=== PATIENT | female | born 1985 | race Caucasian/White ===

== ENCOUNTER → 2018-04-11 | Outpatient (REF) | payer OTHER | LOC: M LAB REF 13:14 | DX: Z34.82 Encounter for supervision of other normal pregnancy, second trimester (principal) ==

== ENCOUNTER → 2018-04-15 | Outpatient (REF) | payer OTHER | LOC: M LAB REF 17:18 | DX: Z34.82 Encounter for supervision of other normal pregnancy, second trimester (principal) ==

== ENCOUNTER 2018-04-24 19:33 | Outpatient (CLI) | payer OTHER ==
[2018-04-24 20:20] LABS: BASO % 0.2 % (0.0-1.0); EOS # 0.4 10^3/uL (0.0-0.50); EOS % 2.9 % (0.0-3.0); HEMATOCRIT 28.1 % (36.0-47.0); HEMOGLOBIN 9.6 g/dl (12.0-15.5); IMMATURE GRANULOCYTE % 0.6 % (0-3.0); LYMPH # 2.1 10^3/uL (1.5-4.5); LYMPH % 17.2 % (24.0-44.0); MEAN CORPUSCULAR HEMOGLOBIN 29.7 pg (27.0-33.0); MEAN CORPUSCULAR HGB CONC 34.2 g/dl (32.0-36.5); MONO # 0.9 10^3/uL (0.0-0.8); MONO % 7.5 % (0.0-5.0); NEUTROPHILS # 8.7 10^3/uL (1.8-7.7); NEUTROPHILS % 71.6 % (36.0-66.0); PLATELET COUNT, AUTOMATED 205 10^3/uL (150-450); RED BLOOD COUNT 3.23 10^6/uL (4.00-5.40); RED CELL DISTRIBUTION WIDTH 13.2 % (11.5-14.5); WHITE BLOOD COUNT 12.2 10^3/uL (4.0-10.0)
[2018-04-24 21:00] LABS: ALBUMIN 2.5 GM/DL (3.2-5.2); ALBUMIN/GLOBULIN RATIO 0.69 (1.00-1.93); ALKALINE PHOSPHATASE 56 U/L (45-117); ALT/SGPT 29 U/L (12-78); AMYLASE 40 U/L (25-115); ANION GAP 9 MEQ/L (8-16); AST/SGOT 19 U/L (7-37); BILIRUBIN,TOTAL 0.2 MG/DL (0.2-1.0); CALCIUM LEVEL 8.2 MG/DL (8.5-10.1); CARBON DIOXIDE LEVEL 23 MEQ/L (21-32); CHLORIDE LEVEL 109 MEQ/L (98-107); GLOMERULAR FILTRATION RATE > 60.0 (>60); GLUCOSE, FASTING 95 MG/DL (70-100); LIPASE 118 U/L (73-393); POTASSIUM SERUM 3.8 MEQ/L (3.5-5.1); SODIUM LEVEL 141 MEQ/L (136-145); TOTAL PROTEIN 6.1 GM/DL (6.4-8.2)
[2018-04-24 21:01] LABS: BLOOD UREA NITROGEN 12 MG/DL (7-18)
== END 2018-04-24 23:30 | disposition home or self-care (01) ==
LOC: M LDO 19:33
DX: O26.892 Other specified pregnancy related conditions, second trimester (principal); R10.12 Left upper quadrant pain; O99.019 Anemia complicating pregnancy, unspecified trimester; Z3A.22 22 weeks gestation of pregnancy
CPT/HCPCS: 76705

== ENCOUNTER 2018-04-24 23:38 | Emergency (ER) | payer OTHER ==
[2018-04-25 00:13] LABS: KETONE, URINE AUTO RFX NEGATIVE (NEGATIVE); LEUKOCYTE ESTERASE UR AUTO RFX NEGATIVE (NEGATIVE); MUCUS, URINE RFX SMALL (NEGATIVE); NITRITE, URINE AUTO RFX NEGATIVE (NEGATIVE); RBC, URINE AUTO RFX 2 /HPF (0-3); SQUAM EPITHELIAL CELL UR AURFX 1 /HPF (0-6); WBC, URINE AUTO RFX 0 /HPF (0-3)
[2018-04-25 00:57] LABS: AMPHETAMINES LEVEL URINE NEGATIVE (NEGATIVE); BARBITURATES URINE NEGATIVE (NEGATIVE); BENZODIAZEPINES URINE NEGATIVE (NEGATIVE); CANNABINOIDS URINE NEGATIVE (NEGATIVE); COCAINE METABOLITE URINE NEGATIVE (NEGATIVE); METHADONE URINE NEGATIVE (NEGATIVE); OPIATES URINE NEGATIVE (NEGATIVE); PHENCYCLIDINE URINE NEGATIVE (NEGATIVE)
[2018-04-25] MEDS: DICYCLOMINE INJ 20MG/2ML (J0500) IM ×2 (01:13→01:15)
== END 2018-04-25 01:19 | disposition home or self-care (01) ==
LOC: M ED 23:38
DX: O26.892 Other specified pregnancy related conditions, second trimester (principal); R10.9 Unspecified abdominal pain; Z3A.22 22 weeks gestation of pregnancy; O99.322 Drug use complicating pregnancy, second trimester; F11.11 Opioid abuse, in remission
CPT/HCPCS: 81001

== ENCOUNTER → 2018-06-04 | Outpatient (CLI) | payer OTHER ==
[2018-06-04 11:41] LABS: HEMATOCRIT 32.6 % (36.0-47.0); HEMOGLOBIN 10.9 g/dl (12.0-15.5); MEAN CORPUSCULAR HEMOGLOBIN 30.3 pg (27.0-33.0); MEAN CORPUSCULAR HGB CONC 33.4 g/dl (32.0-36.5); MEAN CORPUSCULAR VOLUME 90.6 fl (80.0-96.0); PLATELET COUNT, AUTOMATED 234 10^3/uL (150-450); RED CELL DISTRIBUTION WIDTH 13.4 % (11.5-14.5); WHITE BLOOD COUNT 17.5 10^3/uL (4.0-10.0)
[2018-06-04 11:52] LABS: GLUCOSE CHALLENGE TEST 1 HOUR 168 MG/DL (LESS THAN 140)
== END ==
LOC: M LAB 10:01
DX: O09.212 Supervision of pregnancy with history of pre-term labor, second trimester (principal)
CPT/HCPCS: 82950

== ENCOUNTER → 2018-06-19 | Outpatient (CLI) | payer OTHER ==
[2018-06-19 09:57] LABS: GLUCOSE, FASTING 89 MG/DL (LESS THAN 95)
[2018-06-19 11:00] LABS: 1 HR GLUCOSE 153 MG/DL (LESS THAN 180)
[2018-06-19 12:28] LABS: 2 HR GLUCOSE 157 MG/DL (LESS THAN 155)
[2018-06-19 12:49] LABS: 3 HR GLUCOSE 105 MG/DL (LESS THAN 140)
== END ==
LOC: M LAB 08:59
DX: Z36.89 Encounter for other specified antenatal screening (principal); R73.02 Impaired glucose tolerance (oral)
CPT/HCPCS: 82951

== ENCOUNTER → 2018-07-24 | Outpatient (REF) | payer OTHER ==
[~2018-07-24] MED LIST: BENT10CA PO; FERR325T16 PO; PRENTAB45 PO; STOO100C PO; TYLE325C PO
== END ==
LOC: M LAB REF 17:10
PROVIDERS: ATTEND Obstetrics & Gynecology
DX: Z36.89 Encounter for other specified antenatal screening (principal)

== ENCOUNTER 2018-08-14 00:20 | Inpatient (IN) | payer OTHER ==
[~2018-08-14] VITALS: Ht 177.8 cm; Wt 92.1 kg
[2018-08-14] VITALS (9 sets, daily range): BP systolic 93–106; BP diastolic 51–70
[2018-08-14] MEDS ORDERED: IRON27TA2 PO (01:04)
[2018-08-14] MEDS ORDERED: LR 800 ML IV ONE (02:15)
[2018-08-14] MEDS ORDERED: LR 1,000 ML IV SCH ×2 (02:15→05:15)
[2018-08-14 02:48] LABS: HEMATOCRIT 34.4 % (36.0-47.0); HEMOGLOBIN 11.6 g/dl (12.0-15.5); MEAN CORPUSCULAR HEMOGLOBIN 30.9 pg (27.0-33.0); MEAN CORPUSCULAR HGB CONC 33.7 g/dl (32.0-36.5); MEAN CORPUSCULAR VOLUME 91.7 fl (80.0-96.0); PLATELET COUNT, AUTOMATED 203 10^3/uL (150-450); RED BLOOD COUNT 3.75 10^6/uL (4.00-5.40); WHITE BLOOD COUNT 17.3 10^3/uL (4.0-10.0)
[2018-08-14] MEDS ORDERED: BICITRA 30ML SOLN UDC As Ordered ONE (03:12)
[2018-08-14] MEDS ORDERED: ONDANSETRON 4MG/2ML VIAL (J2405) As Ordered ONE (03:27)
[2018-08-14] MEDS ORDERED: dexameTHASONE 4 MG/ML 1ML VIAL (J1100) As Ordered ONE (03:27)
[2018-08-14] MEDS ORDERED: OXYTOCIN INJ 10 UNITS/ML VIAL (J2590) As Ordered ONE (03:27)
[2018-08-14] MEDS ORDERED: MORPHINE PRES-FREE INJ 10 MG/10 ML VIAL (J2274) As Ordered ONE (03:28)
[2018-08-14] MEDS ORDERED: fentaNYL 100 MCG/2 ML INJECTION (J3010) As Ordered ONE (03:28)
[2018-08-14] MEDS ORDERED: ONDANSETRON 4MG/2ML VIAL (J2405) IV PRN ×3 (03:44→05:15)
[2018-08-14] MEDS ORDERED: NALOXONE INJ 0.4 MG/1 ML VIAL (J2310) IV PRN ×2 (03:44)
[2018-08-14] MEDS ORDERED: METOCLOPRAMIDE INJ 10MG/2ML VIAL (J2765) IV PRN (03:44)
[2018-08-14] MEDS ORDERED: diphenhydrAMINE INJ 50MG/ML VIAL (J1200) IV PRN (03:44)
[2018-08-14] MEDS ORDERED: NALBUPHINE HCL 10 MG/ML AMP (J2300) IV PRN ×2 (03:44→05:15)
[2018-08-14] MEDS ORDERED: ePHEDrine SULFATE 25 MG/5 ML(5MG/ML) SYRINGE As Ordered ONE (04:16)
[2018-08-14] MEDS ORDERED: PHENYLephrine HCL 500 MCG/5 ML (100MCG/ML) SYRINGE (J2370) As Ordered ONE (04:16)
[2018-08-14] MEDS ORDERED: OXYTOCIN DRIP 30 UNITS in APPROPRIATE DILUENT 1 EA IV SCH (04:49)
[2018-08-14] MEDS ORDERED: MEASLES,MUMPS,RUBELLA VACCINE INJ (MMR-II) (90707) SC SCH (05:00)
[2018-08-14] MEDS ORDERED: METHYLERGONOVINE MALEATE 0.2 MG TAB PO PRN (05:00)
[2018-08-14] MEDS ORDERED: MOM 30ML SUSPENSION UDC PO PRN (05:00)
[2018-08-14] MEDS ORDERED: NORCO, ANEXSIA 5/325MG TABLET (HYDROcodone/ACETAMINOPHEN) PO PRN (05:00)
[2018-08-14] MEDS ORDERED: RHOGAM 300 MCG (1500 IU) INJ (J2790) IM SCH (05:00)
[2018-08-14] MEDS ORDERED: OXYTOCIN 30 UNITS IN 0.9% NaCl 500ML IV BAG (J2590) As Ordered ONE (05:13)
[2018-08-14] MEDS ORDERED: fentaNYL 100 MCG/2 ML INJECTION (J3010) IV PRN (05:15)
[2018-08-14] MEDS ORDERED: PROMETHAZINE INJ 25 MG/ML VIAL (J2550) IV PRN (05:15)
[2018-08-14 05:22] LABS: CORD GAS ABE V -3.5; CORD GAS HCO3 V 23.3 MEQ/L; CORD GAS O2 SAT V 57.7 %; CORD GAS PCO2 V 48.3 mmHg; CORD GAS PH V 7.302 UNITS; CORD GAS PO2 V 23.2 mmHg; CORD GAS SBC V 20.5 MEQ/L; CORD GAS TCO2 V 24.8 MEQ/L
[2018-08-14 05:23] LABS: CORD GAS ABE A -2.5; CORD GAS HCO3 A 25.9 MEQ/L; CORD GAS O2 SAT A 27.9 %; CORD GAS PCO2 A 58.6 mmHg; CORD GAS PH A 7.263 UNITS; CORD GAS PO2 A 12.7 mmHg; CORD GAS SBC A 20.6 MEQ/L; CORD GAS TCO2 A 27.7 MEQ/L
[2018-08-14] MEDS ORDERED: IBUPROFEN 800 MG TAB PO SCH (06:00)
[2018-08-14] MEDS ORDERED: BICITRA 30ML SOLN UDC PO SCH (06:00)
[2018-08-14] MEDS: NORCO, ANEXSIA 5/325MG TABLET (HYDROcodone/ACETAMINOPHEN) PO PRN ×2 (07:54→22:31)
--- NOTE | 2018-08-14 08:14 | HPE ---
DATE OF ADMISSION: 08/14/2018 Sol is a 32-year-old female 4, para 1, 03, with an EDC of 08/27/2018, EGA 38-2/7 weeks gestation, history of prior section who presented to labor and delivery with complaints of contractions and rupture of membranes. Upon evaluation in labor and delivery she was found to be grossly ruptured at this point a decision was made to proceed with a repeat section as she was scheduled for a section at 39 weeks. The patient also desires permanent tubal sterilization. Her record reviewed. The patient had a prior section in 2008 at approximately 26 weeks gestation, fetus weighed 2 pounds 7 ounces. Her lab blood type is A+, rubella immune, hepatitis negative, HIV negative, GC and chlamydia negative, 1-hour sugar testing was within normal limits. Her GBS is positive. PAST MEDICAL HISTORY: Significant for anxiety. PAST SURGICAL HISTORY: section and neck surgery. SOCIAL HISTORY: She is . She is a smoker. Denies any alcohol or drug use although she is she is a former drug abuser, was on Suboxone. FAMILY HISTORY: Significant for lung cancer, diabetes and irritable bowel syndrome. MEDICATIONS: vitamins. The patient was also on Venus which was stopped at 36 weeks. ALLERGIES: She has no known drug allergy. PHYSICAL EXAMINATION: Normal-appearing female in no acute distress. Abdomen: Soft, nontender, nondistended. Extremities: No clubbing, cyanosis or edema. Vaginal exam: Gross rupture of membranes. Tracing reviewed - category I tracing with contractions every 5-7 minutes. ASSESSMENT: 1. Intrauterine at 38-4/7 weeks gestation with spontaneous rupture of membranes. 2. History of prior section for elective repeat section. 3. Multiparity, desires permanent tubal sterilization. PLAN: Admit to labor and delivery. Informed consent signed. Awaiting operating room (OR) for a repeat section and bilateral tubal ligation.
[2018-08-14] MEDS: DOCUSATE SODIUM 100 MG CAP PO SCH ×2 (09:00→20:56)
[2018-08-14] MEDS: PRENATAL VITAMINS CHEWABLE TABLET PO SCH (09:00)
--- NOTE | 2018-08-14 12:44 | RO ---
DATE OF PROCEDURE: 08/14/2018 Sol is a 32-year-old female, 4, para 0-1-3-1, who is admitted at 38-4/7 weeks gestation with spontaneous rupture of membrane. Given that she is a repeat section, she was scheduled for repeat and tubal ligation. A decision was made to proceed with a repeat section and tubal ligation. PREOPERATIVE DIAGNOSES: 1. Term for elective repeat section. 2. Spontaneous rupture of membranes. 3. Desires permanent tubal sterilization. POSTOPERATIVE DIAGNOSES: 1. Term for elective repeat section. 2. Spontaneous rupture of membranes. 3. Desires permanent tubal sterilization. 4. Extensive pelvic and lower uterine adhesions. PROCEDURE: 1. Repeat section. 2. Revision of old scar. 3. Bilateral tubal ligation using Filshie clip 4. Lysis of adhesions. SURGEON: Dr. Chad Handy TOLL TEST DESK WORKER: ANESTHESIA: Spinal. COMPLICATIONS: None. ESTIMATED BLOOD LOSS: 600 mL. FINDINGS: Live female infant in occiput transverse position, 9 and 9, weight 6 pounds 6 ounces. The omentum was adherent to the anterior abdominal wall as well as the lower uterine segment and bladder. Bladder adhesions also noted at the level of the prior section scar. DESCRIPTION OF PROCEDURE: After obtaining informed consent, the patient was taken to the operating room where A spinal anesthetic was found to be adequate. She was then draped and prepped in usual sterile fashion in the supine position. At this point, an elliptical incision was made over the old scar. The old scar was removed and then carried down to the fascia. The fascia was incised in midline fashion and carried through laterally, superior and inferior dissection. The peritoneum was then grasped with Rosi clamps, tented off and dissected off the rectus muscles sharply. The inferior aspect was dissected in similar fashion. Rectus muscles midline fashion. Perineum identified. Peritoneal cavity entered bluntly. Superior and inferior dissection of the peritoneum was then done with good visualization of the bladder. At this point, the omental adhesions were then removed with the Bovie and clamping method. Good hemostasis noted. We then turned our attention to the lower uterine adhesions as well as the bladder. Using the Metzenbaum, these adhesions were taken down. At this point, we were able to create a lower uterine segment incision. The infant was delivered in atraumatic fashion. Nose and mouth bulb suctioned. Cord doubly clamped and cut. Infant was handed over to the waiting warmer. Cord blood and cord gas were sent. Placenta removed manually. Uterus cleared of all clot and debris. The uterine incision was then repaired in two separate layers of #0 Vicryl sutures. At this point, the attention turned to the fallopian tubes where the fimbriated ends were identified and a Filshie clip was then applied approximately 3-4 cm away from the cornual area of each tube. The pelvis copiously irrigated with normal saline and suctioned out. We then turned our attention to the peritoneum which was closed using #2-0 Vicryl in a running fashion. The fascia closed in two separate segments of #0 Vicryl sutures. All superficial bleeders coagulated and the skin was reapproximated in subcuticular fashion using #3-0 Vicryl on a Aung. Steri-Strips placed. The patient tolerated the procedure well. She was then transferred to recovery room in stable condition.
[2018-08-14] MEDS: IBUPROFEN 800 MG TAB PO SCH ×2 (13:50→20:56)
[2018-08-15 02:47] VITALS: BP 84/45
[2018-08-15 02:56] VITALS: BP 90/50
[2018-08-15] MEDS: IBUPROFEN 800 MG TAB PO SCH ×3 (04:56→21:36)
[2018-08-15 06:40] VITALS: BP 92/53
[2018-08-15] MEDS: NORCO, ANEXSIA 5/325MG TABLET (HYDROcodone/ACETAMINOPHEN) PO PRN ×3 (06:50→18:14)
[2018-08-15 07:02] LABS: HEMATOCRIT 31.3 % (36.0-47.0); HEMOGLOBIN 10.5 g/dl (12.0-15.5); MEAN CORPUSCULAR HEMOGLOBIN 30.3 pg (27.0-33.0); MEAN CORPUSCULAR HGB CONC 33.5 g/dl (32.0-36.5); MEAN CORPUSCULAR VOLUME 90.5 fl (80.0-96.0); PLATELET COUNT, AUTOMATED 184 10^3/uL (150-450); RED BLOOD COUNT 3.46 10^6/uL (4.00-5.40); WHITE BLOOD COUNT 15.6 10^3/uL (4.0-10.0)
[2018-08-15] MEDS: PRENATAL VITAMINS CHEWABLE TABLET PO SCH (08:52)
[2018-08-15] MEDS: DOCUSATE SODIUM 100 MG CAP PO SCH ×2 (08:52→21:38)
[2018-08-15 10:04] VITALS: BP 92/54
[2018-08-15] MEDS: SIMETHICONE 80 MG CHEW TAB PO SCH ×2 (16:43→23:56)
[2018-08-15 18:10] VITALS: BP 120/69
[2018-08-15 22:28] VITALS: BP 111/57
[2018-08-16] MEDS: NORCO, ANEXSIA 5/325MG TABLET (HYDROcodone/ACETAMINOPHEN) PO PRN ×3 (00:02→08:43)
[2018-08-16] MEDS: IBUPROFEN 800 MG TAB PO SCH (06:08)
[2018-08-16] MEDS: SIMETHICONE 80 MG CHEW TAB PO SCH ×2 (06:08→11:59)
[2018-08-16 06:50] VITALS: BP 125/60
[2018-08-16] MEDS: PRENATAL VITAMINS CHEWABLE TABLET PO SCH (08:38)
[2018-08-16] MEDS: DOCUSATE SODIUM 100 MG CAP PO SCH (08:39)
[2018-08-16] MEDS ORDERED: COLA100C5 PO (08:54)
[2018-08-16] MEDS ORDERED: IBUP-1114 PO (08:54)
[2018-08-16] MEDS ORDERED: NORC1TAB4 PO (08:54)
--- NOTE | 2018-08-21 09:31 | DSES ---
DATE OF ADMISSION: 08/14/2018 DATE OF DISCHARGE: 08/16/2018 FINAL DIAGNOSES: 1. Term for elective repeat section. 2. Spontaneous rupture of membrane. 3. Desires permanent tubal sterilization. 4. Extensive pelvic and lower uterine adhesions. PROCEDURES DONE DURING THIS ADMISSION: 1. Repeat section. 2. Revision of old scar. 3. Bilateral tubal ligation using Filshie clip. 4. Lysis of adhesions. CONDITION ON DISCHARGE: Stable. DISCHARGE INSTRUCTIONS: The patient is instructed to call if there is any severe bleeding, pain or temperature greater than 101. She was given a prescription for Percocet as needed for pain and ibuprofen as needed. BRIEF HISTORY: Sol is 32-year-old female, 4, para 0-1-3-1, who was admitted at 38-4/7 weeks gestation with spontaneous rupture of membranes. At this point, a decision was made to proceed with the repeat section, bilateral tubal ligation and revision of old scar. After this procedure, she was then admitted to maternity for postoperative care. Postoperatively, she did well and remained afebrile all throughout her hospital stay. On postoperative day #1, her hemoglobin/hematocrit (H/H) was 10.5/31.3 with a platelet count of 184 and a white count of 15.6. She was found to be in stable condition. On postop day #2, she was discharged home to follow up in the office in approximately 2 weeks for an incision check. The above discharge instructions were also given.
== END 2018-08-16 12:20 | disposition home or self-care (01) | DRG 540 ==
LOC: M LDO 00:20 → M LDI 02:03 → M OBS 06:56
PROVIDERS: ADMIT Obstetrics & Gynecology; ATTEND Obstetrics & Gynecology
PROC: 0UL70DZ Occlusion of Bilateral Fallopian Tubes with Intraluminal Device, Open Approach (ICD-10-PCS; 2018-08-14)
PROC: 10D00Z1 Extraction of Products of Conception, Low, Open Approach (ICD-10-PCS; principal; 2018-08-14 03:34)
DX: O34.211 Maternal care for low transverse scar from previous cesarean delivery (principal); F17.200 Nicotine dependence, unspecified, uncomplicated; Z37.0 Single live birth; Z3A.38 38 weeks gestation of pregnancy; O99.334 Smoking (tobacco) complicating childbirth; Z30.2 Encounter for sterilization